=== PATIENT | male | born 1950 | race Caucasian/White ===

== ENCOUNTER 2018-11-24 11:52 | Emergency (ER) | payer MEDICARE, OTHER ==
[~2018-11-24] VITALS: Ht 185.4 cm; Wt 116.6 kg
[2018-11-24] MEDS ORDERED: [UNRECOGNIZED DRUG - OTHER] PO (11:58)
[2018-11-24 13:05] LABS: ABSOLUTE BASOPHILS 0.1 thou/uL (0.0-0.2); ABSOLUTE EOSINOPHILS 0.1 thou/uL (0.0-0.7); ABSOLUTE LYMPHOCYTES 1.5 thou/uL (0.8-5.3); ABSOLUTE MONOCYTES 0.4 thou/uL (0.0-1.2); ABSOLUTE NEUTROPHILS 2.9 thou/uL (1.6-8.1); BASOPHILS 1.2 %; EOSINOPHILS 1.9 %; HEMATOCRIT 43.5 % (42.0-52.0); HEMOGLOBIN 14.9 gm/dL (14.0-18.0); LYMPHOCYTES 30.8 %; MCH 29.2 pg (26.0-34.0); MCHC 34.2 g/dL (28.0-37.0); MCV 85.5 fL (80.0-100.0); MONOCYTES 8.3 %; MPV 7.9 fl. (7.2-11.1); NUCLEATED RBCS 0 /100WBC; PLATELET COUNT* 220 thou/uL (150-400); POLYS 57.8 %; RBC 5.09 mil/uL (4.50-6.00); RDW-CV 13.5 % (10.5-14.5); WBC 4.9 thou/uL (4.0-11.0)
[2018-11-24 13:08] LABS: INR 1.1
[2018-11-24 14:21] VITALS: BP 142/72
== END 2018-11-24 14:22 | disposition home or self-care (01) ==
LOC: M.ERS 11:52
PROVIDERS: Emergency Medicine
DX: S46.211A Strain of muscle, fascia and tendon of other parts of biceps, right arm, initial encounter (principal); X58.XXXA Exposure to other specified factors, initial encounter; Y93.67 Activity, basketball; Y92.89 Other specified places as the place of occurrence of the external cause; Y99.8 Other external cause status; I10 Essential (primary) hypertension

== ENCOUNTER → 2018-12-12 | Outpatient (CLI) | payer MEDICARE, OTHER ==
[~2018-12-12] MED LIST: [UNRECOGNIZED DRUG - OTHER] PO
== END ==
LOC: M.MRI 07:57
DX: S46.811A Strain of other muscles, fascia and tendons at shoulder and upper arm level, right arm, initial encounter (principal); X58.XXXA Exposure to other specified factors, initial encounter; Y93.89 Activity, other specified; Y92.89 Other specified places as the place of occurrence of the external cause; Y99.8 Other external cause status

== ENCOUNTER → 2018-12-31 | Outpatient (CLI) | payer MEDICARE, OTHER | LOC: M.LAB 05:15 | DX: E87.6 Hypokalemia (principal) ==

== ENCOUNTER 2019-11-29 11:11 | Inpatient (IN) | payer MEDICARE, OTHER ==
[~2019-11-29] VITALS: Ht 193 cm; Wt 110.7 kg
--- NOTE | ~2019-11-29 | PROC ---
[facility] [address] [place] [address] PROCEDURE REPORT Name: ELIOT CURRAN Room: [address] IN M.R.#: [id number] Admission: 11/29/19 Attend Phys: Francisca Gross Discharge: 12/02/19 Date of : 46 Report #: [id number] THIS REPORT FOR: //name// cc: Mario Ballard Vincent R. DO ~ THIS REPORT FOR: //name// For GI report, please see the Provation report in Perceptive 7 content. By: 0656Medical Records Staff MONTEZ /YANDEL
[~2019-11-29 11:11] MED LIST changes: +AMLODIPINE BESY10 MG PO; +CATAPRES0.1 MG PO; +NEURONTIN300 MG PO
[2019-11-29 11:17] VITALS: BP 108/56
[2019-11-29] MEDS ORDERED: BENZONATATE200 MG PO (11:21)
[2019-11-29 12:25] LABS: ABSOLUTE BASOPHILS 0.1 thou/uL (0.0-0.2); ABSOLUTE LYMPHOCYTES 0.8 thou/uL (0.8-5.3); ABSOLUTE MONOCYTES 1.1 thou/uL (0.0-1.2); ABSOLUTE NEUTROPHILS 8.7 thou/uL (1.6-8.1); BASOPHILS 0.9 %; EOSINOPHILS 0.1 %; HEMATOCRIT 20.1 % (42.0-52.0); LYMPHOCYTES 7.4 %; MCH 23.8 pg (26.0-34.0); MCHC 33.2 g/dL (28.0-37.0); MCV 71.8 fL (80.0-100.0); MONOCYTES 10.4 %; MPV 8.8 fl. (7.2-11.1); NUCLEATED RBCS 0 /100WBC; PLATELET COUNT* 381 thou/uL (150-400); POLYS 81.2 %; RBC 2.81 mil/uL (4.50-6.00); RDW-CV 17.5 % (10.5-14.5); WBC 10.7 thou/uL (4.0-11.0)
[2019-11-29 12:28] LABS: CALCIUM 8.6 mg/dL (8.5-10.1); CREATININE 1.3 mg/dL (0.6-1.3)
[2019-11-29 12:30] LABS: HEMOGLOBIN 6.7 gm/dL (14.0-18.0)
[2019-11-29 12:39] LABS: ALBUMIN 1.8 g/dL (3.4-5.0); TOTAL BILIRUBIN 1.6 mg/dL (<0.1-1.0); TOTAL PROTEIN 6.8 g/dL (6.4-8.2)
[2019-11-29 13:50] VITALS: BP 107/57
[2019-11-29 14:20] VITALS: BP 106/59
[2019-11-29 14:46] LABS: % SATURATION 11 % (20-39); IRON 15 ug/dL (50-175)
[2019-11-29 15:16] VITALS: BP 101/48; BP 103/56; BP 108/58; BP 114/57
[2019-11-29 18:55] LABS: HEMATOCRIT 21.7 % (42.0-52.0); HEMOGLOBIN 7.1 gm/dL (14.0-18.0)
[2019-11-29 20:00] VITALS: BP 120/52
[2019-11-30] VITALS: BP 125/58
[2019-11-30 04:00] VITALS: BP 100/61
[2019-11-30 07:25] LABS: ABSOLUTE LYMPHOCYTES 0.7 thou/uL (0.8-5.3); ABSOLUTE NEUTROPHILS 8.7 thou/uL (1.6-8.1); BASOPHILS 0.5 %; EOSINOPHILS 0.2 %; HEMATOCRIT 20.7 % (42.0-52.0); LYMPHOCYTES 6.9 %; MCH 23.7 pg (26.0-34.0); MCHC 33.1 g/dL (28.0-37.0); MCV 71.7 fL (80.0-100.0); MONOCYTES 9.8 %; MPV 8.4 fl. (7.2-11.1); NUCLEATED RBCS 0 /100WBC; PLATELET COUNT* 388 thou/uL (150-400); POLYS 82.6 %; RBC 2.89 mil/uL (4.50-6.00); RDW-CV 18.1 % (10.5-14.5); WBC 10.6 thou/uL (4.0-11.0)
[2019-11-30 07:26] LABS: CALCIUM 8.5 mg/dL (8.5-10.1); POTASSIUM 3.7 mmol/L (3.5-5.1)
[2019-11-30 07:40] LABS: HEMOGLOBIN 6.9 gm/dL (14.0-18.0)
[2019-11-30 08:00] VITALS: BP 101/59
[2019-11-30 12:45] VITALS: BP 101/49; BP 103/56; BP 98/56; BP 98/58
--- NOTE | 2019-11-30 14:07 | EKG ---
[place] [address] ELECTROCARDIOGRAM REPORT Name: ELIOT CURRAN Room: [address] ADM IN ..#: [id number] Admission: 11/29/19 Attend Phys: Last Burgos Discharge: Date of : 46 Date of Service: 11/29/19 1120 Report #: [id number] THIS REPORT FOR: //name// [facility] ED Test Date: 2019-11-29 Test Time: 11:20:27 Pat Name: ELIOT CURRAN Department: Room: [facility] Gender: M Collections Rep: AMANDA : 1950 Requested By: Ron Bustillo Order Number: [id number] MD: Mykel Quesada Measurements Intervals [place] Rate: 112 P: 39 IA: 149 QRS: -24 QRSD: 97 T: 51 QT: 319 QTc: 436 Interpretive Statements Sinus arrhythmia Multiform ventricular premature complexes and pac's Borderline left axis deviation Abnormal R-wave progression, early transition Baseline wander in lead(s) V5 No previous ECG available for comparison Electronically Signed On 11-30-2019 14:05:13 CDT by Mykel Quesada [email or web address] <ELECTRONICALLY SIGNED> By: Mykel Quesada MD, FAC 11/30/19 1405 1120 1120 Mykel Quesada MD, FAC /EPI
[2019-11-30 17:42] LABS: HEMATOCRIT 24.2 % (42.0-52.0); HEMOGLOBIN 7.8 gm/dL (14.0-18.0)
[2019-11-30 20:00] VITALS: BP 113/60
[2019-12-01 00:26] VITALS: BP 106/49
[2019-12-01 04:32] VITALS: BP 109/56
[2019-12-01 04:44] LABS: HEMATOCRIT 22.6 % (42.0-52.0); MPV 8.5 fl. (7.2-11.1); RBC 3.06 mil/uL (4.50-6.00)
[2019-12-01 04:46] LABS: ABSOLUTE BASOPHILS 0.1 thou/uL (0.0-0.2); ABSOLUTE LYMPHOCYTES 0.6 thou/uL (0.8-5.3); ABSOLUTE MONOCYTES 1.3 thou/uL (0.0-1.2); ABSOLUTE NEUTROPHILS 9.5 thou/uL (1.6-8.1); BASOPHILS 0.5 %; EOSINOPHILS 0.2 %; HEMOGLOBIN 7.5 gm/dL (14.0-18.0); LYMPHOCYTES 5.6 %; MCH 24.4 pg (26.0-34.0); MCHC 33.1 g/dL (28.0-37.0); MCV 73.9 fL (80.0-100.0); MONOCYTES 11.2 %; NUCLEATED RBCS 0 /100WBC; PLATELET COUNT* 396 thou/uL (150-400); POLYS 82.5 %; RDW-CV 18.3 % (10.5-14.5); WBC 11.5 thou/uL (4.0-11.0)
[2019-12-01 05:05] LABS: ALBUMIN 1.8 g/dL (3.4-5.0); CALCIUM 8.3 mg/dL (8.5-10.1); CREATININE 1.2 mg/dL (0.6-1.3); POTASSIUM 3.8 mmol/L (3.5-5.1); TOTAL BILIRUBIN 1.6 mg/dL (<0.1-1.0); TOTAL PROTEIN 6.6 g/dL (6.4-8.2)
[2019-12-01 06:18] LABS: ESR (SEDRATE) 125 mm/hr (0-20)
[2019-12-01 08:00] VITALS: BP 104/44
[2019-12-01 12:01] VITALS: BP 100/52
--- NOTE | 2019-12-01 16:13 | EKG ---
[place] [address] ELECTROCARDIOGRAM REPORT Name: ELIOT CURRAN Room: [address] ADM IN .R.#: [id number] Admission: 11/29/19 Attend Phys: Last Burgos Discharge: Date of : 46 Date of Service: 11/29/19 225 Report #: [id number] THIS REPORT FOR: //name// [facility] Test Date: 2019-11-29 Test Time: 22:51:56 Pat Name: ELIOT CURRAN Department: Room: [address] Gender: M Hooker Laster: RUBÉN : 1950 Requested By: Last Burgos Order Number: [id number] Paresh MD: Riaz Ospina Measurements Intervals [place] Rate: 113 P: 36 ID: 153 QRS: -24 QRSD: 88 T: 56 QT: 311 QTc: 427 Interpretive Statements Sinus tachycardia Multiple pac's and pvc's Borderline left axis deviation Compared to ECG 11/29/2019 11:20:27 Sinus arrhythmia no longer present Electronically Signed On 12-01-2019 16:11:53 CDT by Riaz Ospina [email or web address] <ELECTRONICALLY SIGNED> By: Riaz Ospina MD, [facility] 12/01/19 1611 225 50 Riaz Ospina MD, [facility] /EPI
[2019-12-01 20:30] VITALS: BP 109/56
[2019-12-02 00:22] VITALS: BP 99/47
[2019-12-02 04:13] VITALS: BP 87/43
[2019-12-02 07:44] VITALS: BP 92/50
[2019-12-02 09:59] VITALS: BP 92/50
[2019-12-02] MEDS ORDERED: PROTONIX40 M1 PO (10:30)
[2019-12-02] MEDS ORDERED: FOLIC ACID1 MG PO (10:30)
[2019-12-02 11:08] LABS: GLOBULIN TOTAL 3.3 g/dL (2.2-3.9); M-SPIKE Not Observed g/dL (Not Observed)
[2019-12-02 11:58] VITALS: BP 106/49
[2019-12-02 15:50] VITALS: BP 108/57
--- NOTE | 2019-12-03 13:35 | CON ---
[facility] [address] [place] [address] CONSULTATION Name: ELIOT CURRAN Room: [address] IN M.R.#: [id number] Admission: 11/29/19 Attend Phys: Francisca Gross Discharge: 12/02/19 Date of : 46 Report #: [id number] THIS REPORT FOR: //name// cc: Mario Ballard Vincent R. DO ~ THIS REPORT FOR: //name// CC: Mario Batista DATE OF SERVICE: 11/30/2019 GI CONSULTATION REFERRING PHYSICIAN: Mario Ballard DO. REASON FOR CONSULTATION: Severe anemia. IMPRESSION: 1. Severe microcytic anemia, most suspicious for iron deficiency anemia. 2. Chronic cough of uncertain significance and etiology. 3. 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 4. Anorexia, early satiety and weight loss of uncertain significance. 5. Low iron saturation with a markedly elevated ferritin - evaluate for possible lab error versus the fact that the ferritin is elevated due to being an acute phase reactant. RECOMMENDATIONS: 1. We will proceed with upper and lower endoscopy tomorrow morning. I have discussed the plans with the patient well and contacted his , Laina, by phone and they are agreeable to the same. 2. We will hold off on any oral iron supplementation until after we completed the endoscopic studies and also figure out what needs to be done. 3. We will repeat a ferritin and add soluble transferrin receptor assay to better sort out what is going on with his iron status. 4. We will also have a peripheral blood smear evaluation by pathology. 5. Check a 2-view chest x-ray and if negative, I will proceed with a CT scan chest, abdomen and pelvis after we completed his gastrointestinal workup because of his weight loss and his anemia and chronic cough. I have discussed the plan with the patient as well as his and they are agreeable to the same. HISTORY OF PRESENT ILLNESS: The patient is a very pleasant 69-year-old white male with history of lymphoma involving his left eye for which he underwent treatment at [facility] for the same [place] [address] CONSULTATION Name: MAGDYELIOT Jose Room: [address]#: [id number] Admission: 11/29/19 Attend Phys: Francisca Gross Discharge: 12/02/19 Date of : 46 Report #: [id number] last fall. He has had a PET scan, which was unrevealing. He was admitted to the hospital because of severe fatigue and just not feeling very well, but denied any major complaints referable to his upper or lower GI tract, other than the fact that he has not had much of an appetite and has lost some weight. He thinks he lost close to 20 pounds. He denies fevers, chills, night sweats or any other issues. He denies any complaints of any dysphagia, odynophagia, but just does not have much of an appetite. He denies any problem with his bowels or bowel frequency or any black stools, tarry stools or any blood in the stools. He has undergone endoscopic studies in the past, but it has been a number of years ago since his last examination. He is admitted to the hospital with hemoglobin of only 7 g/dL. We were asked to see him with regards to the same. ALLERGIES: None. MEDICATIONS: At home include gabapentin, amlodipine, colonic and benzonatate for his cough. PAST MEDICAL AND SURGICAL HISTORY: Hypertension, left rotator cuff surgery. He has had right foot surgery and history of lymphoma involving his left eye. SOCIAL HISTORY: The patient does not smoke or drink. FAMILY HISTORY: Negative. PHYSICAL EXAMINATION: GENERAL: Pleasant 69-year-old gentleman who appears pale. He does have some word finding difficulties, which is nothing new for him. CARDIOPULMONARY: Revealed a regular rate and rhythm. I cannot appreciate any obvious organomegaly or masses. ABDOMEN: He is not tender. LABORATORY DATA: From admission revealed a white count of 10.7, hemoglobin 6.7, platelet count 281,000, MCV is 71.8 and RDW of 17.5. His differential was normal. By comparison, his hemoglobin back on 11/24/2018 was 4.9, hemoglobin 14.9, platelet count 220,000. His sodium is 130, potassium 4.0, chloride 94, bicarbonate 25. His BUN 18, creatinine 1.3 for GFR of 54. Total bilirubin is 1.6, alkaline phosphatase 118, AST 28, ALT 22. Albumin is only 1.8. His iron saturation was 11% and his ferritin was 1588 with a B12 level of 353. His portable chest x-ray on admission from the was negative. DISCUSSION: At the present time, the patient is profoundly anemic and does not feel well. We will proceed with upper and lower endoscopy and tomorrow we will [address] [address] CONSULTATION Name: ELIOT CURRAN Room: [address] IN .R.#: [id number] Admission: 11/29/19 Attend Phys: Francisca Gross Discharge: 12/02/19 Date of : 46 Report #: [id number] make further recommendations thereafter. I have discussed the plan with the patient as well and he is agreeable to the same. <ELECTRONICALLY SIGNED> By: Michael Quezada DO 12/03/19 1335 1354 2049Michael Quezada DO /nt
--- NOTE | 2019-12-12 13:14 | CON ---
[address] [address] CONSULTATION Name: MAGDYELIOT Jose Room: [address] IN M.R.#: [id number] Admission: 11/29/19 Attend Phys: Francisca Gross Discharge: 12/02/19 Date of : 46 Report #: [id number] THIS REPORT FOR: //name// cc: Mario Ballard Vincent R. DO ~ THIS REPORT FOR: //name// CC: Mario Burgos DATE OF SERVICE: 11/30/2019 REQUESTING PHYSICIAN: Last Burgos DO REASON FOR CONSULTATION: Anemia. HISTORY OF PRESENT ILLNESS: The patient is a pleasant 69-year-old man who was admitted to the hospital with cough and shortness of breath and tachycardia. Apparently, he was seen by his primary care physician in [facility]. He had a COVID-19 test done, which was negative. He presented to [facility], was found to have profound anemia. The patient was admitted to the hospital. Hematology consult was requested. He has complaints of shortness of breath on exertion. He does not have complaints of fever. Denies night sweats or weight loss. He has a history of non-Hodgkin's lymphoma. He states he does have observation assistant at ____. He does not have complaints of melena or hematochezia. Denies numbness in extremities. PAST MEDICAL HISTORY: Significant for non-Hodgkin's lymphoma, hypertension. SOCIAL HISTORY: Does not smoke. REVIEW OF SYSTEMS: See above. PHYSICAL EXAMINATION: GENERAL: Reveals well-developed, well-nourished elderly man, not in acute distress. VITAL SIGNS: Blood pressure 101/59, heart rate is 84, temperature 98.5, respirations 18. HEENT AND NECK: Supple. HEART: Normal S1, S2. LUNGS: Clear. LYMPATIC: There is no supraclavicular lymphadenopathy. ____ LABORATORY DATA: White count 10.5, hemoglobin 6.9, platelets 388, MCV 71.7. RDW 18.1. TIBC 134. Ferritin 1588, B12 of 353. Labs [place] [address] CONSULTATION Name: AGUSTÍNPRAVINELIOT Jose Room: [address]#: [id number] Admission: 11/29/19 Attend Phys: Francisca Gross Discharge: 12/02/19 Date of : 46 Report #: [id number] recent transfusion total protein 6.8, albumin 1.8. Chest x-ray diagnostic report is pending. ASSESSMENT AND PLAN: Microcytic anemia. I agree with workup. So far workup is nondiagnostic ____. <ELECTRONICALLY SIGNED> By: Mague Peralta MD 12/12/19 1314 1349 MD mathew Price
--- NOTE | 2019-12-16 11:08 | PATH ---
[address] [address] PATHOLOGY RPT PROCEDURE Name: MAGDYSANDRO Jose Room: [address] IN M.R.#: [id number] Admission: 11/29/19 Date of : 46 Discharge: 12/02/19 Report #: [id number] Path Case #: [id number] [facility] Accession Number: [id number] . 01 Material submitted: . PART A: stomach - ANTRAL BIOPSY FOR H. PYLORI PART B: stomach - BIOPSY OF MID BODY GASTRIC ULCER. 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 01 Clinician provided ICD-10: K92.2 E43 . 02 Diagnosis: A. Antral biopsy: - Moderate chronic active antral gastritis suggesting reactive gastropathy with erosion, negative for overt malignancy, Helicobacter pylori organisms and granulomas. See comment. (JOSE JUAN:[facility] 12/07/2019) . B. Gastric mucosa, mid body, gastric ulcer, endoscopic biopsy: - DIFFUSE LARGE B-CELL LYMPHOMA, NON-GERMINAL CENTER SUBGROUP. PLEASE SEE COMMENT. (MYNOR/juan; 12/07/2019) . C. Esophageal biopsy at 43 cm (probable Ohara's): - Esophageal and gastric/columnar types mucosa with moderate chronic inflammation typical of reflux, negative for goblet cells/diagnostic Ohara's metaplasia, overt malignancy, granulomas and dysplasia. See comment. (JOSE JUAN:[facility] 12/07/2019) [facility] 12/07/2019 1453 Local . 02 Comment: A, C. In both specimens A and C, lymphocytes have a small/mature appearance unlike the malignancy seen in specimen B. Properly controlled immunohistochemical studies performed on A show the following results: H. pylori - Negative Keratin Leland - No evidence of carcinoma . Results of specimen B discussed with Dr. Quezada on mid-afternoon of 12/07/[address] Socrates Simmons (JOSE JUAN:[facility] 12/07/2019) . B. Examination of the mid body gastric ulcer shows proliferation of large and neoplastic lymphoid cells with fairly round to slightly irregular nuclear borders, prominent nucleoli and moderate amount of cytoplasm. These cells are noted infiltr[place] [address] PATHOLOGY RPT PROCEDURE Name: SANDRO CURRAN Room: [address] IN M.R.#: [id number] Admission: 11/29/19 Date of : 46 Discharge: 12/02/19 Report #: [id number] Path Case #: [id number] Immunohistochemical stains with appropriate controls show: . (Block B1) CD45 - Positive CD20 - Positive PAX5 - Positive MUM1 - Positive CD3 - Highlights T-lymphoid cells CD5 - Highlights T-lymphoid cells CD10 - Negative BCL1 - Negative BCL2 - Positive BCL6 - Negative Ki67 - Approximately 50% proliferation fraction H. pylori - Negative CKOSCAR - Negative . Based on the morphology and immunohistochemical staining pattern, these findings are consistent with involvement by diffuse large B-cell lymphoma, non-germinal center subgroup. FISH for aggressive B-cell lymphoma is pending to further classify the large B-cell lymphoma and an addendum report will be submitted separately. (MYNOR/juan; 12/07/19) . SURGICAL PATHOLOGY CANCER CASE SUMMARY Protocol posting date: April 2013 NON-HODGKIN LYMPHOMA/LYMPHOID NEOPLASMS: Biopsy, Resection Specimen ___ Other (specify): Gastric ulcer Procedure ___ Biopsy Tumor Site ___ Other tissue(s) or organ(s): Gastric ulcer Histologic Type Mature B-Cell Neoplasms ___ Diffuse large B-cell lymphoma (DLBCL), NOS Immunophenotyping (flow cytometry and/or immunohistochemistry): ___ Performed Specify method(s) and results: Immunohistochemical stains, please see comment + Cytogenetic Studies + ___ Not performed + Molecular Genetic Studies + ___ Not performed (MYNOR/juan; 12/07/19) . 02 Addendum: . Special studies report received from [facility], [address] [place] [address], [address], [place], [address], on case [id number] , [place] [address] PATHOLOGY RPT PROCEDURE Name: SANDRO CURRAN Room: [address] IN ..#: [id number] Admission: 11/29/19 Date of : 46 Discharge: 12/02/19 Report #: [id number] Path Case #: [id number] labeled with their number [id number], dated 12/15/2019. . Fluorescence in situ Hybridization (FISH) Report [employer] Analysis . RESULT: No assay specific abnormalities detected by Aggressive B-cell Lymphoma FISH panel . Specimen Type: Tissue, Gastric Mucosa, Mid Body, Gastric Ulcer . Indication for Study: Diffuse Large B-cell Lymphoma . INTERPRETATION: Fluorescence in situ hybridization (FISH) analysis was performed on this patient's paraffin embedded tissue specimen using DNA probes for Aggressive B-cell Lymphoma panel. One hundred interphase nuclei were examined for each probe and the signal patterns did not reveal any assay specific abnormalities. Based on the performance characteristics established on this assay, all test values were within the normal reference range. . Genetic changes other than those assayed here cannot be ruled out on the basis of this testing. Correlation with cytogenetic, clinical and pathological findings is suggested for a complete interpretation of the results. . The following [employer] FISH analysis was performed on this patient's specimen: ProbeDetection ParametersResultISCN Probe Detection Parameters Result ISCN BCL2 (18q21) Detects a rearrangement Not Detected nuc robert(5'BCL2, of the BCL2 gene 3'BCL2)x2(5'BCL2 con 3'BCL2x2)(100) MYC (8q24) Detects a rearrangement Not Detected nuc robert(5'MYC,3'MYC) of the MYC gene x2(5'MYC con 3'MYCx2)(100) BCL6 (3q27) Detects a rearrangement Not Detected nuc robert(5'BCL6, of the BCL6 gene 3'BCL6)x2(5'BCL6 con 3'BCL6x2)(100) . . at [facility] [employer]. Carlos Barrios, Ph.D., FAC Director of Cytogenetics and Molecular Oncology . Methodology: The patient specimen is processed onto a glass slide. Fluorescent DNA probe(s) is(are) applied to the cells on the [place] [address] PATHOLOGY RPT PROCEDURE Name: SANDRO CURRAN Room: [address] IN [facility].#: [id number] Admission: 11/29/19 Date of : 46 Discharge: 12/02/19 Report #: [id number] Path Case #: [id number] denaturation followed by hybridization. Stringency washes are applied and the slide is subsequently counterstained. A minimum of 100 interphase nuclei are analyzed unless otherwise indicated above. . Intended Use: This assay is considered qualitative and is not intended to be used as a measure of quantitative comparison. . Disclaimer This Test was performed by [employer]. at [address] [place] [address], [address]. [facility] is a business unit of [employer] a wholly-owned subsidiary of [employer]. . . Any image(s) that accompany this report is/are a cordage sales representative image(s) only and should not be used to render a diagnosis. . This test was developed and its performance characteristics determined by [employer]. It has not been cleared or approved by the Food and Drug Administration. . A complete copy of the report is on file. . Professional services performed by [employer]. at [address] [place] [id number]. Technical services performed by [employer]. at [address] [facility] [address], [place] [address]. . (JOSE JUAN:[facility] 12/16/2019) . [facility] Addendum Electronically Signed by Socrates Simmons MD, Pathologist . 02 Electronically signed: . Socrates Simmons MD, Pathologist NPI- [id number] . 01 Gross description: . A. The specimen is received in formalin labeled "Sandro Curran, antral biopsy" and consists of a fragment of caban tissue measuring 0.4 x 0.3 x 0.2 cm which is entirely submitted in A1. . B. The specimen is received in formalin labeled "Sandro Curran, biopsy MID body gastric ulcer" and consists of a fragment of caban tissue measuring 0.3 x 0.2 x 0.2 cm which is entirely submitted in B1. . C. The specimen is received in formalin labeled "Sandro Curran, [place] [address] PATHOLOGY RPT PROCEDURE Name: SANDRO CURRAN W Room: [address] IN [facility]#: [id number] Admission: 11/29/19 Date of : 46 Discharge: 12/02/19 Report #: [id number] Path Case #: [id number] esophageal biopsy at 43 cm-probable Ohara's" and consists of a fragment of caban tissue measuring 0.2 x 0.2 x 0.1 cm which is entirely submitted in C1. ([facility]; 12/02/2019) JFQ/JFQ 12/07/2019 1444 Local . 02 Pathologist provided ICD-10: K29.50, K25.9, B96.81, C83.33, K20.9 . 02 CPT . 156333, 160230, 190645, O51094, H34021, 042230 Specimen Comment: A courtesy copy of this report has been sent to [phone], [phone] Specimen Comment: 1664, , Specimen Comment: Report sent to ,DR OMALLEY / DR MCKEE Specimen Comment: DR SQUIRES Performed at: [address], [place], [place] [id number] MD Angel Luis Lee MD Phone: [phone] Performed at: 02 [facility] [address], [place], [place] [id number] MD Socrates Simmons MD Phone: [phone]
== END 2019-12-02 17:10 | disposition home or self-care (01) | DRG 377 ==
LOC: M.ERS 11:11 → M.TBA-ER 13:05 → M.2W 13:05
PROVIDERS: Emergency Medicine Emergency Medical Services; Family Medicine; Internal Medicine Gastroenterology; ADMIT Internal Medicine; ATTEND Internal Medicine
DX: K92.2 Gastrointestinal hemorrhage, unspecified (principal); E43 Unspecified severe protein-calorie malnutrition; E87.1 Hypo-osmolality and hyponatremia; D62 Acute posthemorrhagic anemia; I10 Essential (primary) hypertension; R63.0 Anorexia; C69.90 Malignant neoplasm of unspecified site of unspecified eye; R59.0 Localized enlarged lymph nodes; G89.29 Other chronic pain; E11.9 Type 2 diabetes mellitus without complications; K22.70 Barrett's esophagus without dysplasia; K44.9 Diaphragmatic hernia without obstruction or gangrene; J98.4 Other disorders of lung; K31.89 Other diseases of stomach and duodenum; K22.8 Other specified diseases of esophagus; K64.4 Residual hemorrhoidal skin tags; Z85.72 Personal history of non-Hodgkin lymphomas; Z68.29 Body mass index [BMI] 29.0-29.9, adult; Z79.899 Other long term (current) drug therapy; K25.9 Gastric ulcer, unspecified as acute or chronic, without hemorrhage or perforation; K26.9 Duodenal ulcer, unspecified as acute or chronic, without hemorrhage or perforation; K57.30 Diverticulosis of large intestine without perforation or abscess without bleeding